=== PATIENT | male | born 1970 | race Caucasian/White ===

== ENCOUNTER 2017-09-01 16:03 | Emergency (ER) | payer OTHER ==
[~2017-09-01] VITALS: Ht 180.3 cm; Wt 102.6 kg
[2017-09-01] MEDS ORDERED: ONDANSETRON INJ 2 MG/ML 2 ML VIAL IV STA (16:21)
[2017-09-01] MEDS ORDERED: LOPERAMIDE HCL 2 MG CAP PO STA (16:21)
[2017-09-01] MEDS ORDERED: SODIUM CHLORIDE 0.9% 1000ML 1,000 ML IV STA (16:21)
[2017-09-01 16:33] VITALS: TEMP 36.8; Ht 180.3 cm; Wt 102.6 kg
--- NOTE | 2017-09-01 16:53 | DIAGNOSTIC IMAGING REPORT ---
ABD/PELVIS NO IV OR ORAL CONT CT DOSE: 1282.28 mGy.cm HISTORY: Pain ABDOMINAL PAIN/GI TECHNIQUE: Multiaxial CT images of the abdomen and pelvis were performed without contrast. A dose lowering technique was utilized adhering to the principles of ALARA. COMPARISON STUDY: None. FINDINGS: Lung bases are clear. Fatty infiltration of liver. Spleen and kidneys are unremarkable. Pancreas is within normal limits. Terminal ileum is unremarkable. Several surgical clips are seen at the site of what is potentially a prior appendectomy despite history. Increased fluid is noted within the colon. No evidence for obstruction. This potentially represents a nonspecific enteritis/colitis. No evidence for abscess collection or obstructive change. IMPRESSION: 1. Nonobstructive bowel pattern. 2. Increased fluid within the colon suggesting nonspecific enteritis versus mild colitis. 3. Fatty infiltration of liver. 4. The appendix is not identified although several surgical clips are identified in the pericecal region raising the possibility of a prior appendectomy, despite history. No evidence for pericecal infiltrative change. The above report was generated using voice recognition software. It may contain grammatical, syntax or spelling errors. Electronically signed by: Tone Perez M.D. 09/01/2017 4:52 PM Dictated Date/Time: 09/01/2017 4:45 PM
[2017-09-01 17:21] LABS: EOS % 1.7 %; EOS ABS # 0.11 K/uL (0-0.5); HEMATOCRIT 47.2 % (42-52); HEMOGLOBIN 16.5 g/dL (14.0-18.0); IG# 0.01 K/uL (0.00-0.02); LYMPH % 15.4 %; LYMPH ABS # 1.02 K/uL (1.2-3.4); MEAN CELL VOLUME 85.5 fL (80-100); MEAN CORPUSCULAR HEMOGLOBIN 29.9 pg (25-34); MEAN PLATELET VOLUME 9.9 fL (7.4-10.4); MONO % 8.6 %; MONO ABS # 0.57 K/uL (0.11-0.59); NEUT % 74.1 %; NEUT ABS # 4.92 K/uL (1.4-6.5); PLATELET COUNT 259 K/uL (130-400); RED CELL DISTRIBUTION WIDTH CV 12.7 % (11.5-14.5); RED CELL DISTRIBUTION WIDTH SD 39.5 fL (36.4-46.3); WHITE BLOOD COUNT 6.63 K/uL (4.8-10.8)
--- NOTE | 2017-09-01 17:23 | DIAGNOSTIC IMAGING REPORT ---
CHEST ONE VIEW PORTABLE CLINICAL HISTORY: ABDOMINAL PAIN/GI pain. Nausea. COMPARISON STUDY: No previous studies for comparison. FINDINGS: The bones soft tissues and hemidiaphragms are normal. The cardiomediastinal silhouette is normal. The lungs are clear. The pulmonary vasculature is normal. Minimal atelectasis left base IMPRESSION: Negative chest. Minimal atelectasis left base. The above report was generated using voice recognition software. It may contain grammatical, syntax or spelling errors. Electronically signed by: Tone Perez M.D. 09/01/2017 5:22 PM Dictated Date/Time: 09/01/2017 5:21 PM
[2017-09-01 17:29] LABS: PTT PATIENT 24.3 SECONDS (21.0-31.0)
[2017-09-01 17:37] LABS: ALBUMIN 3.3 gm/dl (3.4-5.0); CALCIUM 9.2 mg/dl (8.5-10.1); CREATININE 1.51 mg/dl (0.60-1.40); POTASSIUM 3.9 mmol/L (3.5-5.1)
[2017-09-01 17:40] LABS: TOTAL PROTEIN 7.2 gm/dl (6.4-8.2)
[2017-09-01] MEDS ORDERED: ONDA4TAB10 SL (18:14)
--- NOTE | 2017-09-01 18:16 | EMERGENCY ROOM VISIT NOTE ---
History Report prepared by Alesia: Kanwal Dietrich Under the Supervision of: Dr. Hamilton Guzman D.O. First contact with patient: 16:15 Chief Complaint: ABDOMINAL PAIN Stated Complaint: AB PAIN History of Present Illness The patient is a 47 year old male who presents to the Emergency Room with complaints of persistent abdominal pain starting around 0500 this morning. The pain is in his upper abdomen. He first started having diarrhea around 0400. The abdominal pain started afterwards. He has had diarrhea all throughout the day. He reports nausea and has vomited 2 times. He denies any cough, rhinorrhea, or sore throat. He has a history of hypertension. He has had an appendectomy. The patient works as a mechanic industrial truck. He denies any recent antibiotics, camping, or travel. Source of History: patient Onset: 0500 this morning Position: abdomen (upper) Quality: other (pain) Timing: other (persistent) Associated Symptoms: + nausea, + vomiting, + diarrhea, No sorethroat, No cough Review of Systems See HPI for pertinent positives & negatives. A total of 10 systems reviewed and were otherwise negative. Past Medical & Surgical Medical Problems: (1) Hypertension Surgical Problems: (1) S/P appendectomy Family History No pertinent family history stated. Social History Occupation Status: employed Current/Historical Medications Scheduled Ondasetron Odt (Zofran Odt), 4 MG SL Q6H Physical Exam Vital Signs Date Time Temp Pulse Resp B/P (MAP) Pulse Ox O2 Delivery O2 Flow Rate FiO2 09/01/17 17:30 107 20 137/98 95 Room Air 09/01/17 16:58 118 21 121/91 96 Room Air 09/01/17 16:58 114 09/01/17 16:33 36.8 121 18 154/106 95 Room Air Physical Exam CONSTITUTIONAL/VITAL SIGNS: Reviewed / noted above. GENERAL: Non-toxic in appearance. INTEGUMENTARY: Warm, dry, and [place]. HEAD: Normocephalic. EYES: without scleral icterus or trauma. ENT/OROPHARYNX: clear and moist. LYMPHADENOPATHY/NECK: Is supple without lymphadenopathy or meningismus. RESPIRATORY: Lungs clear and equal. CARDIOVASCULAR: Tachycardic rate and regular rhythm. GI/ABDOMEN: Soft and mild diffuse abdominal tenderness. No organomegaly or pulsatile mass. No rebound or guarding. Normal bowel sounds. EXTREMITIES: Warm and well perfused. BACK: No CVA tenderness. NEUROLOGICAL: Intact without focal deficits. PSYCHIATRIC: normal affect. MUSCULOSKELETAL: Normally developed with good muscle tone. Medical Decision & Procedures ER Provider Diagnostic Interpretation: X ray results and stated below per my interpretation and radiology interpretation. Radiology results as stated below per my review and radiologist interpretation: CHEST ONE VIEW PORTABLE CLINICAL HISTORY: ABDOMINAL PAIN/GI pain. Nausea. COMPARISON STUDY: No previous studies for comparison. FINDINGS: The bones soft tissues and hemidiaphragms are normal. The cardiomediastinal silhouette is normal. The lungs are clear. The pulmonary vasculature is normal. Minimal atelectasis left base IMPRESSION: Negative chest. Minimal atelectasis left base. The above report was generated using voice recognition software. It may contain grammatical, syntax or spelling errors. Electronically signed by: Tone Perez M.D. 09/01/2017 5:22 PM Dictated Date/Time: 09/01/2017 5:21 PM ABD/PELVIS NO IV OR ORAL CONT CT DOSE: 1282.28 mGy.cm HISTORY: Pain ABDOMINAL PAIN/GI TECHNIQUE: Multiaxial CT images of the abdomen and pelvis were performed without contrast. A dose lowering technique was utilized adhering to the principles of ALARA. COMPARISON STUDY: None. FINDINGS: Lung bases are clear. Fatty infiltration of liver. Spleen and kidneys are unremarkable. Pancreas is within normal limits. Terminal ileum is unremarkable. Several surgical clips are seen at the site of what is potentially a prior appendectomy despite history. Increased fluid is noted within the colon. No evidence for obstruction. This potentially represents a nonspecific enteritis/colitis. No evidence for abscess collection or obstructive change. IMPRESSION: 1. Nonobstructive bowel pattern. 2. Increased fluid within the colon suggesting nonspecific enteritis versus mild colitis. 3. Fatty infiltration of liver. 4. The appendix is not identified although several surgical clips are identified in the pericecal region raising the possibility of a prior appendectomy, despite history. No evidence for pericecal infiltrative change. The above report was generated using voice recognition software. It may contain grammatical, syntax or spelling errors. Electronically signed by: Tone Perez M.D. 09/01/2017 4:52 PM Dictated Date/Time: 09/01/2017 4:45 PM Laboratory Results 09/01/17 17:07 Red Blood Count 5.52, Mean Corpuscular Volume 85.5, Mean Corpuscular Hemoglobin 29.9, Mean Corpuscular Hemoglobin Concent 35.0, Mean Platelet Volume 9.9, Neutrophils (%) (Auto) 74.1, Lymphocytes (%) (Auto) 15.4, Monocytes (%) (Auto) 8.6, Eosinophils (%) (Auto) 1.7, Basophils (%) (Auto) 0.0, Neutrophils # (Auto) 4.92, Lymphocytes # (Auto) 1.02, Monocytes # (Auto) 0.57, Eosinophils # (Auto) 0.11, Basophils # (Auto) 0.00 09/01/17 17:07 Test 09/01/17 17:07 White Blood Count 6.63 K/uL (4.8-10.8) Red Blood Count 5.52 M/uL (4.7-6.1) Hemoglobin 16.5 g/dL (14.0-18.0) Hematocrit 47.2 % (42-52) Mean Corpuscular Volume 85.5 fL (80-100) Mean Corpuscular Hemoglobin 29.9 pg (25-34) Mean Corpuscular Hemoglobin Concent 35.0 g/dl (32-36) Platelet Count 259 K/uL (130-400) Mean Platelet Volume 9.9 fL (7.4-10.4) Neutrophils (%) (Auto) 74.1 % Lymphocytes (%) (Auto) 15.4 % Monocytes (%) (Auto) 8.6 % Eosinophils (%) (Auto) 1.7 % Basophils (%) (Auto) 0.0 % Neutrophils # (Auto) 4.92 K/uL (1.4-6.5) Lymphocytes # (Auto) 1.02 K/uL (1.2-3.4) Monocytes # (Auto) 0.57 K/uL (0.11-0.59) Eosinophils # (Auto) 0.11 K/uL (0-0.5) Basophils # (Auto) 0.00 K/uL (0-0.2) RDW Standard Deviation 39.5 fL (36.4-46.3) RDW Coefficient of Variation 12.7 % (11.5-14.5) Immature Granulocyte % (Auto) 0.2 % Immature Granulocyte # (Auto) 0.01 K/uL (0.00-0.02) Prothrombin Time 10.4 SECONDS (9.0-12.0) Prothromb Time International Ratio 1.0 (0.9-1.1) Activated Partial Thromboplast Time 24.3 SECONDS (21.0-31.0) Partial Thromboplastin Ratio 0.9 Anion Gap 7.0 mmol/L (3-11) Est Creatinine Clear Calc Drug Dose 73.7 ml/min Estimated GFR () 62.8 Estimated GFR (Non- 54.2 BUN/Creatinine Ratio 16.1 (10-20) Calcium Level 9.2 mg/dl (8.5-10.1) Total Bilirubin 0.7 mg/dl (0.2-1) Direct Bilirubin 0.1 mg/dl (0-0.2) Aspartate Amino Transf (AST/SGOT) 12 U/L (15-37) Alanine Aminotransferase (ALT/SGPT) 44 U/L (12-78) Alkaline Phosphatase 57 U/L (45-117) Total Protein 7.2 gm/dl (6.4-8.2) Albumin 3.3 gm/dl (3.4-5.0) Lipase 103 U/L (73-393) Laboratory results as stated above per my review. Medications Administered Medications (Trade) Dose Ordered Sig/Robin Route Start Time Stop Time Status Last Admin Dose Admin Sodium Chloride 1,000 ml @ 999 mls/hr Q1H1M STAT IV 09/01/17 16:21 09/01/17 17:22 DC 09/01/17 16:57 999 MLS/HR Ondansetron HCl (Zofran Inj) 4 mg NOW STAT IV 09/01/17 16:21 09/01/17 16:24 DC 09/01/17 16:58 4 MG Loperamide HCl (Imodium Cap) 2 mg NOW STAT PO 09/01/17 16:21 09/01/17 16:24 DC 09/01/17 16:57 2 MG ECG Per My Interpretation Indication: tachycardia Rate (beats per minute): 117 Rhythm: sinus tachycardia Findings: no ectopy, other (no ST elevation, no ST depression) ED Course 1615: Previous medical records were reviewed. The patient was evaluated in room C4. A complete history and physical examination was performed. 1621: Imodium Cap 2 mg PO, Zofran Inj 4 mg IV, NSS 1000 ml @ 999 mls/hr IV. 1753: On reevaluation, the patient is resting comfortably. I discussed the results and findings with the patient. He verbalized agreement of the treatment plan. He was discharged home. Medical Decision Differential diagnosis: Etiologies such as gastroenteritis, food borne illness, infections, appendicitis , diverticulitis, inflammatory bowel disease, obstruction, GI bleed, biliary pathology, as well as others were entertained. This is a 47-year-old male who presents to the ED with a chief complaint of diarrhea, nausea and vomiting. The patient had diarrhea since 4 AM. He had 2 episodes of vomiting today. He states that he has some abdominal discomfort as well. It is mostly in the supraumbilical area. The patient states that his abdominal discomfort started after his diarrhea started. He has had his appendix removed in the past. His initial heart rate was 122. Blood pressure was 154/106. The patient's EKG showed a sinus rhythm at a rate of 117 without ischemic changes. His CBC is normal, complete metabolic panel was unremarkable. Lipase is negative. BUN was 24 and creatinine is 1. 5. A CT scan of the abdomen pelvis did not show acute surgical process. There was evidence of enteritis versus colitis. This is consistent with the patient's symptoms. Chest x-ray did not show acute process. The patient was treated with IV Zofran, IV fluids and p.o. Imodium. He was feeling somewhat better. He is felt to be stable for discharge. Zofran home pack and prescription for Zofran was given. Imodium was encouraged. Fluids were encouraged. Medication Reconcilliation Current Medication List: was personally reviewed by me Blood Pressure Screening Patient's blood pressure: Elevated blood pressure Blood pressure disposition: Elevated BP felt to be situational Impression Primary Impression: Acute gastroenteritis Scribe Attestation The scribe's documentation has been prepared under my direction and personally reviewed by me in its entirety. I confirm that the note above accurately reflects all work, treatment, procedures, and medical decision making performed by me. Departure Information Dispostion Home / Self-Care Prescriptions Ondasetron Odt (ZOFRAN ODT) 4 Mg Tab 4 MG SL Q6H for Nausea, #20 TAB Prov: Hamilton Guzman, D.O. 09/01/17 Patient Instructions Diarrhea, My [facility] Additional Instructions Zofran: Allow one tablet to dissolve under the tongue every 6 hours as needed for nausea or vomiting. Take Imodium for diarrhea. Follow-up with your doctor for further care and evaluation in 1-2 days. Return to the emergency department for worsening or new symptoms or any concerns. You have been examined and treated today on an emergency basis only. This is not a substitute for, or an effort to provide, complete comprehensive medical care. It is impossible to recognize and treat all injuries or illnesses in a single emergency department visit. It is therefore important that you follow up closely with your doctor. Call as soon as possible for an appointment.
[2017-09-01 18:35] VITALS: BP 152/100; PULSE 105; O2SAT 95
== END 2017-09-01 18:36 | disposition home or self-care (01) ==
LOC: C.EDC 16:05
DX: K52.9 Noninfective gastroenteritis and colitis, unspecified (principal); I10 Essential (primary) hypertension